=== PATIENT | female | born 2000 | race African-American/Black ===

== ENCOUNTER 2024-11-07 15:02 | Emergency (ER) | payer BC, SELFPAY ==
--- NOTE | ~2024-11-07 | CT_ITS ---
History: Low back pain PROCEDURE: CT lumbar spine without intravenous contrast. COMPARISON: None TECHNIQUE: Multiple contiguous axial images of the lumbar spine were performed without the administration of int ravenous contrast. DLP: 367 mGy-cm FINDINGS: Preservation of the normal lordotic curvature of the lumbar spine is identified. No acute compression fractures are present. No soft tissue abnormality is noted. Impression: No acute compression fracture, as detailed above. Reviewed, dictated and finalized at location A. CING MACHINE OPERATOR Impression: No acute compression fracture, as detailed above.
[2024-11-07 15:23] VITALS: BP 126/75; PULSE 96; RESP 16; TEMP 36.5; O2SAT 98
--- NOTE | 2024-11-07 16:49 | ED_ITS ---
HPI - Back Pain/Injury General Chief Complaint: Back Pain/Injury <Fabienne Baez PA-C - Last Filed: 11/09/24 19:01> Stated Complaint: back pain x48 hours <Fabienne Baez PA-C - Last Filed: 11/09/24 19:01> Time Seen by Provider: 11/07/24 16:49 <Fabienne Baez PA-C - Last Filed: 11/09/24 19:01> Focused HPI: This is a 24 year old female that presents to the ER for low back pain. Reports she tried to lift her bed 2 days ago. Has had worsening pain and spasms since. Denies saddle anesthesia or bowel/bladder incontinence. GENERAL: Well-appearing, well-nourished, and in no acute distress. HEAD: Normocephalic, atraumatic. CHEST: Clear to auscultation. ?No respiratory distress. HEART: Regular rate and rhythm.? NEURO: ?Alert and oriented x3. Patient screened in triage and initial orders placed.? ?Additional care and disposition to be based upon?diagnostic testing and treatment. <Fabienne Baez PA-C - Last Filed: 11/09/24 19:01> Related Data Allergies/Adverse Reactions: Allergies Allergy/AdvReac Type Severity Reaction Status Date / Time No Known Allergies Allergy Verified 11/07/24 15:27 <Fabienne Baez PA-C - Last Filed: 11/09/24 19:01> Review of Systems Review of Systems: All systems reviewed & are unremarkable except as noted in HPI and below <Tanvi Loza APRN - Last Filed: 11/07/24 21:31> Exam Narrative: GENERAL: Well appearing, well-nourished, non-toxic, in mild distress d/t pain. HEAD: Normocephalic, atraumatic. NECK: Supple. No adenopathy, no masses. RESPIRATORY: Airway patent, respirations nonlabored. Clear to auscultation bila terally, no rales, rhonchi, wheezing. CARDIOVASCULAR: Regular rate and rhythm without murmurs, rubs, or gallops. Peripheral pulses 2+ and equal bilaterally. ABDOMINAL: Soft, nontender, nondistended, no hepatosplenomegaly. Normoactive BS. MUSCULOSKELETAL: Moves all extremities. Strength/ROM intact without gross deformities. No pain with palpation. SKIN: Warm, dry, normal color. No rashes. NEURO: A&O X3. Speech clear. Cranial nerves intact. No ataxic movements. PSYCHIATRIC: Appropriate mood and affect. Normal interaction. <Tanvi Loza, JOY - Last Filed: 11/07/24 21:31> Course Vital Signs Vital signs: Vital Signs Temperature 97.7 F 11/07/24 15:23 Pulse Rate 96 11/07/24 15:23 Respiratory Rate 16 11/07/24 15:23 Blood Pressure 126/75 11/07/24 15:23 Pulse Oximetry 98 11/07/24 15:23 Oxygen Delivery Room Air 11/07/24 15:23 Temperature 97.7 F 11/07/24 15:23 Pulse Rate 64 11/07/24 17:11 Respiratory Rate 17 11/07/24 17:11 Blood Pressure 115/78 11/07/24 17:11 Pulse Oximetry 97 11/07/24 17:11 Oxygen Delivery Room Air 11/07/24 15:23 <Fabienne Baez PA-C - Last Filed: 11/09/24 19:01> Vital Signs Temperature 97.7 F 11/07/24 15:23 Pulse Rate 96 11/07/24 15:23 Respiratory Rate 16 11/07/24 15:23 Blood Pressure 126/75 11/07/24 15:23 Pulse Oximetry 98 11/07/24 15:23 Oxygen Delivery Room Air 11/07/24 15:23 Temperature 97.7 F 11/07/24 15:23 Pulse Rate 64 11/07/24 17:11 Respiratory Rate 17 11/07/24 17:11 Blood Pressure 115/78 11/07/24 17:11 Pulse Oximetry 97 11/07/24 17:11 Oxygen Delivery Room Air 11/07/24 15:23 <Tanvi Loza, JOY - Last Filed: 11/07/24 21:31> MDM - Back Pain/Injury MDM Narrative Medical decision making narrative: Pt is a 24 year old female that presents to the ER for low back pain. Reports she tried to lift her bed 2 days ago. Has had worsening pain and spasms since. Denies saddle anesthesia or bowel/bladder incontinence. Labs Ordered: Urinalysis, bedside Imaging Ordered: CT lumbar spine scan Medications Ordered: Cyclobenzaprine, Morphine 4mg IV, patient verbalizes she received Toradol IM from EMS Results: Patient's CT lumbar spine indicates Preservation of the normal lordotic curvature of the lumbar spine is identified. No acute compression fractures are present. No soft tissue abnormality is noted. Patient's urinalysis indicated no acute abnormalities. Diagnosis: Muscle strain, strain of lumbar region Consults: neurosurgery (outpatient) Patient Education/Shared MDM: Results shared with patient. She endorses improvement following medication administration and reports I was able to stand. Patient strongly advised to follow-up with her PCP or neurosurgery if her symptoms don't improve. She will be discharged home with prescription for a Medrol Dose Ki, Flexeril, and NSAIDs. Strict return precautions provided. Bruce hartley verbalized understanding is in agreement with plan. Vital signs stable at time of discharge. All questions answered. <Tanvi Loza APRN - Last Filed: 11/07/24 21:31> Differential Diagnosis Differential diagnosis: Likely lumbar radiculopathy, strain of lumbar region, pyelonephritis and discitis <Tanvi Loza APRN - Last Filed: 11/07/24 21:31> Lab Data Attestation: I reviewed the patient's lab results. <Tanvi Loza APRN - Last Filed: 11/07/24 21:31> Labs: Lab Results 11/07/24 11/07/24 Range/Units 20:01 20:02 Urine Color Yellow (Yellow) Urine Appearance Clear (Clear) Urine pH 6.5 (5.0-9.0) Ur Specific [place] 1.018 (1.001-1.035) Urine Protein Negative (Negative) mg/dL Urine Glucose (UA) Negative (Negative) mg/dL Urine Ketones Trace H (Negative) mg/dL Ur Blood (Man) Negative (Negative) Urine Nitrate Negative (Negative) Urine Bilirubin Negative (Negative) Urine Urobilinogen 0.2 (<2.0) mg/dL Leukocyte Esterase Rfl Trace H (Negative) JAZMINE/UL Urine RBC 0-2 (0-2) /hpf Urine WBC 0-5 (0-3) /hpf Ur Squamous Epith Cells None seen (Few) /hpf Urine Bacteria None seen /hpf Urine Casts 0-2 POC Urine HCG, Qual Negative (Negative) <Fabienne Baez PA-C - Last Filed: 11/09/24 19:01> Lab Results 11/07/24 11/07/24 Range/Units 20:01 20:02 Urine Color Yellow (Yellow) Urine Appearance Clear (Clear) Urine pH 6.5 (5.0-9.0) Ur Specific [place] 1.018 (1.001-1.035) Urine Protein Negative (Negative) mg/dL Urine Glucose (UA) Negative (Negative) mg/dL Urine Ketones Trace H (Negative) mg/dL Ur Blood (Man) Negative (Negative) Urine Nitrate Negative (Negative) Urine Bilirubin Negative (Negative) Urine Urobilinogen 0.2 (<2.0) mg/dL Leukocyte Esterase Rfl Trace H (Negative) JAZMINE/UL Urine RBC 0-2 (0-2) /hpf Urine WBC 0-5 (0-3) /hpf Ur Squamous Epith Cells None seen (Few) /hpf Urine Bacteria None seen /hpf Urine Casts 0-2 POC Urine HCG, Qual Negative (Negative) <Tanvi Loza APRN - Last Filed: 11/07/24 21:31> Imaging Data Radiologist's impression: ITS Impressions Lumbar Spine CT 11/07/24 20:35 Impression: No acute compression fracture, as detailed above. <Fabienne Baez PA-C - Last Filed: 11/09/24 19:01> Critical Care Time Critical Care Time Critical Care Time: No <Fabienne Baez PA-C - Last Filed: 11/09/24 19:01> Discharge Plan Discharge Clinical Impression: Strain of lumbar region Qualifiers: Encounter type: initial encounter Qualified Code(s): S39.012A - Strain of muscle, fascia and tendon of lower back, initial encounter <Fabienne Baez PA-C - Last Filed: 11/09/24 19:01> Patient Disposition: Home, Self-Care <Fabienne Baez PA-C - Last Filed: 11/09/24 19:01> Condition: Stable <Fabienne Baez PA-C - Last Filed: 11/09/24 19:01> Instructions: Antibiotic Form, Acute Low Back Pain (ED) <Fabienne Baez PA-C - Last Filed: 11/09/24 19:01> Additional Instructions: Please return to the ER with an worsening symptoms. Follow-up with primary care provider in the next 2-3 days and neurosurgery, if symptoms do not improve. Take all medications as prescribed. <Fabienne Baez PA-C - Last Filed: 11/09/24 19:01> Patient Language: Urdu <Fabienne Baez PA-C - Last Filed: 11/09/24 19:01> Prescriptions: New methylprednisolone [Medrol (Ki)] 4 mg tablets,dose pack See Rx Instructions .ROUTE .COMPLEX Qty: 21 0RF Rx Instructions: for 6 days naproxen 500 mg tablet 500 mg PO BID PRN (Reason: pain) Qty: 14 0RF cyclobenzaprine 5 mg tablet 5 mg PO TID PRN (Reason: muscle spasm) Qty: 21 0RF <Fabienne Baez PA-C - Last Filed: 11/09/24 19:01> Follow-up/Referrals: Tito Swift MD [Physician] - (neurosurgery) PHYSICIAN,DROP COUNT ASSOCIATE [Non-Staff] - <Fabienne Baez PA-C - Last Filed: 11/09/24 19:01> Time of Disposition: 21:30 <Fabienne Baez PA-C - Last Filed: 11/09/24 19:01> 21:30 <Tanvi Loza APRN - Last Filed: 11/07/24 21:31>
[2024-11-07 17:11] VITALS: BP 115/78; PULSE 64; RESP 17; O2SAT 97
[2024-11-07] MEDS: MORPHINE SULFATE (*CRX) 4 MG/ML INJ IV PUSH (18:54)
[2024-11-07] MEDS: CYCLOBENZAPRINE HCL 10 MG TABLET PO (18:54)
--- NOTE | 2024-11-07 19:04 | PC.NURSE ---
Pt medicated for pain. Pt aware of need for test prior to obtaining CT. Pt states she is unable to get up to provide sample at this time due to pain, and that she will be able to shortly. Pt given urine specimen cup and call light. Instructed to call if she needs additional assistance to get to restroom or once she has sample available. Pt verbalized understanding.
--- OUTSIDE RECORDS SUMMARY | 2024-11-07 19:17 | XMS_ITS | Continuity of Care Document ---
Author Organization [facility] Address [address] [place] [id number] Phone Care Team Providers Care Roadmaster Name Role Phone Arianna Da Silva APN Unavailable Unavailable Allergies, Adverse Reactions, Alerts Substance Reaction Status Criticality No Known Allergies Active No Inform ation Medications Medication Instructions Dosage Effective Dates (start - stop) Status Comments No Drug Therapy Prescribed Procedures Procedure Date OFFICE/OUTPATIENT VISIT, [facility] [place] Advance Directives Directive Yes / No Effective Date File Name No Information Encounters Encounter Description Practice Location Reason(s) For Visit Diagnoses Date Provider Providers Copied on Encounter [facility], [address] [place] [address], [id number], tel:[phone] [facility] No Information Avinash Keller. [address] [place] [address], [id number]. tel:[phone] OFFICE/OUTPAT IENT VISIT, [facility], [address] [place] [address], [id number], [place] tel:[phone] [facility] STI (chief complaint) Screening for STD (sexually transmitted disease)Famil y planning advice Avinash Keller. [address] [place] [address], [id number]. tel:[phone] Family History Family Member Type Diagnosis Age At Onset No Information Payers Payer name Insurance type Covered green party ID Authoriza tialondra(s) No Information Social History Type Description Quantity Date Captured Comments Alcohol Use Details Unknown Caffeine Use Details Unknown Tobacco Use Status No Information Smoking Status No Information Sex Female Gender Identity Female Chief Complaint And Reason For Visit No Information Reason For Referral Reason For Referral No Information Plan Of Treatment Date Type Action Status Patient Education Learning About Safer Se x for Teens completed History Of Present Illness Encounter Date Complaint History Of Prese nt Illness STI Presently the pa naeem is not experiencing vaginal itching, vaginal irritation, vaginal odor and vaginal discharge. She denies fever, dyspareunia, vaginal burning, dysuria, frequent urination, genital lesions, genital rash, genital ulcers, herpes genitalis, itching skin of vaginal/groin or vulvar dystrophy. Functional Status Date Functional Assessmen t No Information Medications Administered Medication Instructions Dosage Effective Dates (start - stop) Status Comments No Drug Therapy Prescribed Instructions Date Instruction Additional Infor enoc Today we are testing your urine for chlamydia and gonorrheaWe will call your phone only if any treatment is required - this occures within 1-2 weeksWe encourage family involvement in your sexual decisionsTake daily folic acid 400mcg daily - recomended for all women of age to prevent defectsUse condoms for all sexual activity to prevent the spread of STDsFollow up with Arianna LARIOS Related to Screening for STD (sexually transmitted disease) Assessments Type Assessment Date No Information Patient Care Teams Name Effective Dates (start - stop) Status Members No Information
--- OUTSIDE RECORDS SUMMARY | 2024-11-07 19:17 | XMS_ITS | Referral Summary ---
Author Organization [facility] Address [address] [place] [address] Care Team Providers Care Spear Fisher Name Role Phone Unknown, Provider Primary Care Provider Unavaila ble Source Comments [facility],non-owned Affiliates and Associated Physician Practices is amultiple site organization consisting of ambulatory clinics and hospital sitesin [place], [place], [place] and [place]. This disclosure is being madepursuant to the Care Everywhere program and may not contain all information available regarding this patient. Last updated 18.[facility] Allergies No known active allergies Medications Be aware that medications may not be up to date on this document. Always verify current medications with the patient. No known medications Active Problems No known active problems Social History Tobacco Use Types Packs/Day Years Used Date Smoking Tobacco: Never Smokeless Tobacco: Never Sex and Gender Information Value Date Recorded Sex Assigned at Not on file Gender Identity Not on file Sexual Orientation Not on file Last Filed Vital Signs Vital Sign Reading Time Taken Comments Blood Pressure 100/62 08/01/2021 11:06 AM CDT Pulse 89 08/01/2021 11:06 AM CDT Temperature 37.1 C (98.7 F) 08/01/2021 11:06 AM CDT Respiratory Rate 17 08/01/2021 11:06 AM CDT Oxygen Saturation 98% 08/01/2021 11:06 AM CDT Inhaled Oxygen Concentration - - Weight 68.9 kg (152 lb) 08/01/2021 11:06 AM CDT Height 170.2 cm (5' 7 ) 08/01/2021 11:06 AM CDT Body Mass Index 23.81 08/01/2021 11:06 AM CDT Plan of Treatment Not on file Care Teams Spear Fisher Relationship Specialty Start Date End Date Unknown, Provider PCP - General 08/01/21
--- OUTSIDE RECORDS SUMMARY | 2024-11-07 19:17 | XMS_ITS | Clinical Summary ---
Author Organization [facility] Address [address] [place] [address] Care Team Providers Care Senior Budget Analyst Name Role Phone Unknown, Provider Primary Care Provider Unavaila ble Source Comments [facility],non-owned Affiliates and Associated Physician Practices is amultiple site organization consisting of ambulatory clinics and hospital sitesin [place] and [place]. This disclosure is being madepursuant to the Care Everywhere program and may not contain all information available regarding this patient. Last updated 18.[facility] Allergies No known active allergies Medications Be [...] 08/01/2021 11:06 AM CDT Plan of Treatment Health Maintenance Due Date Last Done Comments PAP SMEAR 1998 HIV SCREENING 2013 HPV VACCINE (1 - 3-dose series) 2013 HEPATITIS C SCREENING 04/29/2016 DTAP/TDAP/TD VACCINES (1 - Tdap) 2017 HEPATITIS B VACCINE (1 of 3 - 19+ 3-dose series) 2017 COVID-19 VACCINE (2 - 2023-2 5 season) 2024 12/15/2020 INFLUENZA VACCINE (#1) 2024 DEPRESSION SCREENING 09/28/2024 ZOSTER VACCINE (1 of 2) 2048 HIB VACCINE Aged Out No longer eligi ble based on patient's age to complete this topic MENINGOCOCCAL (Group B) VACCINE Aged Out No longer eligible based on patient's age to complete this topic MENINGOCOCCAL VACCINE Aged Out No rachel srinivas eligible based on patient's age to complete this topic PNEUMOCOCCAL VACCINE Aged Out No long er eligible based on patient's age to complete this topic Care Teams Senior Budget Analyst Relationship Specialty Start Date End Date Unknown, Provider PCP - General 08/01/21
--- OUTSIDE RECORDS SUMMARY | 2024-11-07 19:17 | XMS_ITS | Patient Health Summary ---
Author Organization [facility] Address [address] [place] [address] Care Team Providers Care Marketing Automation Analyst Name Role Phone Unknown, Provider Primary Care Provider Unavaila ble Note from [facility],non-owned Affiliates and Associated Physician Practices is amultiple site organization consisting of ambulatory clinics and hospital sitesin [place], [place], [place] and [place]. This disclosure is being madepursuant to the Care Everywhere program and may not contain all information available regarding this patient. Last updated 18.[facility] Allergies No known active allergies Medications Be [...] Mass Index 23.81 08/01/2021 11:06 AM CDT Care Teams Marketing Automation Analyst Relationship Specialty Start Date End Date Unknown, Provider PCP - General 08/01/21
--- OUTSIDE RECORDS SUMMARY | 2024-11-07 19:17 | XMS_ITS | Clinical Summary ---
Author Organization [facility] Address [address] [place] [address] Care Team Providers Care Nurses' Association Executive Director Name Role Phone Una Luciano MD Primary Care Provider [phone] Allergies No known active allergies Medications No known medications Immunizations Name Administration Dates Next Due Meningococcal MPSV4 04/30/2015 Surgical History Surgery Date Site/Laterality Comments ADENOIDECTOMY Bilateral Medical History Medical History Date Comments No known problems Social History Tobacco Use Types Packs/Day Years Used Date Smoking Tobacco: Never Smokeless Tobacco: Never Alcohol Use Standard Drinks/Week Comments No 0 (1 standard drink = 0.6 oz pur e alcohol) Inadequate Housing Answer Date Recorded Social Determinants: Housing (Overall Score Help er) 0 05/11/2019 Sex and Gender Information Value Date Recorded Sex Assigned at Not on file Gender Identity Not on file Sexual Orientation Not on file Obstetrics History Last Filed Vital Signs Vital Sign Reading Time Taken Comments Blood Pressure 110/78 09/30/2018 11:22 AM PICTURE BOOKER Pulse 74 09/30/2018 11:22 AM PICTURE BOOKER Temperature 37.2 C (99 F) 09/30/2018 11:22 AM PICTURE BOOKER Respiratory Rate 16 09/30/2018 11:22 AM PICTURE BOOKER Oxygen Saturation - - Inhaled Oxygen Concentration - - Weight 63.5 kg (140 lb) 09/30/2018 11:22 AM PICTURE BOOKER Height 172.7 cm (5' 8 ) 09/30/2018 11:22 AM PICTURE BOOKER Body Mass Index 21.29 09/30/2018 11:22 AM PICTURE BOOKER Plan of Treatment Health Maintenance Due Date Last Done Comments Depression Screening 2010 Varicella Vaccine (1 of 2 - 13+ 2-dose series) 2011 HPV Vaccine (1 - 3-dose series) 2013 DTaP/Tdap/Td Vaccine (1 - Tdap) 2017 Hepatitis B Vaccine (1 of 3 - 19+ 3-dose series) 2017 COVID-19 Vaccine ( - 2023-2 5 season) 2024 Influenza Vaccine (#1) 2024 Meningococcal Vaccine Aged Out 04/30/2015 No rachel srinivas eligible based on patient's age to complete this topic Hepatitis A Vaccine Aged Out No longe r eligible based on patient's age to complete this topic Meningococcal Serogroup B Vaccine Aged Out No longer eligible based on patient's age to complete this topic Pneumococcal Vaccine 0-49 Aged Out No longer eligible based on patient's age to complete this topic Care Teams Nurses' Association Executive Director Relationship Specialty [place] [id number] [address] PCP - General 03/19/23
--- OUTSIDE RECORDS SUMMARY | 2024-11-07 19:17 | XMS_ITS | Referral Summary ---
Author Organization [facility] Address [address] [place] [address] Care Team Providers Care Educational Diagnostician Name Role Phone Una Luciano MD Primary Care Provider [phone] Allergies No known active allergies Medications No known medications Immunizations Name Administration Dates Next Due Meningococcal MPSV4 04/30/2015 Social History Tobacco Use Types Packs/Day Years [...] Comments Blood Pressure 110/78 09/30/2018 11:22 AM PERSONNEL SECURITY SPECIALIST Pulse 74 09/30/2018 11:22 AM PERSONNEL SECURITY SPECIALIST Temperature 37.2 C (99 F) 09/30/2018 11:22 AM PERSONNEL SECURITY SPECIALIST Respiratory Rate 16 09/30/2018 11:22 AM PERSONNEL SECURITY SPECIALIST Oxygen Saturation - - Inhaled Oxygen Concentration - - Weight 63.5 kg (140 lb) 09/30/2018 11:22 AM PERSONNEL SECURITY SPECIALIST Height 172.7 cm (5' 8 ) 09/30/2018 11:22 AM PERSONNEL SECURITY SPECIALIST Body Mass Index 21.29 09/30/2018 11:22 AM PERSONNEL SECURITY SPECIALIST Plan of Treatment Not on file Care Teams Educational Diagnostician Relationship Specialty [place] [id number] [address] PCP - General 03/19/23
[2024-11-07 20:04] LABS: BEDSIDEPREGUCG Negative (Negative)
[2024-11-07 20:12] LABS: Add Urine Microscopic? YES; Appearance Urine Clear (Clear); Bacteria Urine None Seen /hpf; Bilirubin Urine Negative (Negative); Blood Urine Negative (Negative); Color Urine Yellow (Yellow); Glucose Urine UA Negative (Negative); Ketones Urine Trace mg/dL (Negative); Leukocyte Esterase Ur Trace LEU/UL (Negative); Nitrate Urine Negative (Negative); Non Pathogenic Casts 0-2; Protein Urine Negative (Negative); RBC Urine 0-2 /hpf (0-2); Specific Grav Ur 1.018 (1.001-1.035); Squamous Epithelial Cell Urine None Seen /hpf (Few); Urobilinogen Urine 0.2 mg/dL (<2.0); WBC Urine 0-5 /hpf (0-3); pH Urine 6.5 (5.0-9.0)
[2024-11-07] MEDS: HYDROcodone/acetaminophen (*CRX) 5-325 MG TABLET 1 TAB PO (21:28)
[2024-11-07] MEDS: predniSONE 20 MG TABLET 60 MG PO (21:28)
== END 2024-11-07 21:49 | disposition home or self-care (01) ==
PROVIDERS: Physician Assistant; Emergency Provider Registered Nurse
DX: S39.012A Strain of muscle, fascia and tendon of lower back, initial encounter (principal); X50.0XXA Overexertion from strenuous movement or load, initial encounter
CPT/HCPCS: 72131; 81001; 81025; 96374; 99284; A9270; J2270; J7512